=== PATIENT | male | born 1950 | race Caucasian/White ===

== ENCOUNTER 2023-10-16 20:27 | Emergency (ER) | payer MEDICARE, OTHER ==
[~2023-10-16] VITALS: Ht 177.8 cm; Wt 97.5 kg
[2023-10-16] MEDS ORDERED: PRED50TA PO (21:44)
[2023-10-16] MEDS: predniSONE 20 MG TABLET PO ONE (21:44)
[2023-10-16] MEDS ORDERED: predniSONE 20 MG TABLET ONE (21:51)
[2023-10-16 22:02] VITALS: BP 118/80; TEMP 98; O2SAT 98
== END 2023-10-16 22:33 | disposition home or self-care (01) ==
LOC: ER 20:38
DX: M10.072 Idiopathic gout, left ankle and foot (principal); Z87.442 Personal history of urinary calculi; Z90.49 Acquired absence of other specified parts of digestive tract; Z79.899 Other long term (current) drug therapy
CPT/HCPCS: A4606; A4663; J7512